=== PATIENT | male | born 1965 | race Caucasian/White ===

== ENCOUNTER 2017-02-19 21:18 | Emergency (ER) | payer OTHER ==
[2017-02-19] MEDS ORDERED: Ketorolac 30 MG/ML SDV IVPUSH ONE (21:28)
[2017-02-19] MEDS ORDERED: Sodium Chloride 0.9% 1,000 ML IV ONE (21:28)
[2017-02-19] MEDS ORDERED: Ondansetron 4 MG/2 ML SDV IVPUSH ONE (21:28)
--- NOTE | 2017-02-19 21:30 | EDM.PDOC ---
ED HPI GENERAL MEDICAL PROBLEM - General Chief Complaint: Abdominal Pain Stated Complaint: ABDOMINAL PAIN/POSSIBLE KIDNEY STONE Time Seen by Provider: 02/19/17 21:29 Source of Information: Reports: Patient - History of Present Illness INITIAL COMMENTS - FREE TEXT/NARRATIVE: HISTORY AND PHYSICAL: History of present illness: []Patient presents with right upper quadrant pain and "6:30 PM increasing to 10 out of 10 7 PM he was followed at the urging of his employer to see the occupational health clinic provider who had performed some x-rays and thought he may have a kidney stone. Which brings the patient to as he does have 6 out of 10 pain now following a TV dinner, pain is located in the right upper quadrant radiating to the back no fever nausea vomiting chills sweats After prolonged evaluation here in the ER symptoms are centered essentially resolved consistent with biliary colic negative workup thus far Was a question of of renal densities in the mid-to low due to nephrocalcinosis secondary to distal renal tubular acidosis medullary sponge kidney or hypercalcemia, however there is no hypercalcemia which would exclude hypercalcemia and the hypercalcemia secondary to tubular acidosis there is no evidence of sponge kidney/cystic kidney disease on imaging Review of systems: As per history of present illness and below otherwise all systems reviewed and negative. Past medical history: As per history of present illness and as reviewed below otherwise noncontributory. Surgical history: As per history of present illness and as reviewed below otherwise noncontributory. Social history: No reported history of drug or alcohol abuse. Family history: As per history of present illness and as reviewed below otherwise noncontributory. Physical exam: HEENT: Atraumatic, normocephalic, pupils reactive, negative for conjunctival pallor or scleral icterus, mucous membranes moist, throat clear, neck supple, nontender, trachea midline. Lungs: Clear to auscultation, breath sounds equal bilaterally, chest nontender. Heart: S1S2, regular, negative for clicks, rubs, or JVD. Abdomen: Soft, nondistended, nontender. Negative for masses or hepatosplenomegaly. Negative for costovertebral tenderness. Pelvis: Stable nontender. Genitourinary: Deferred. Rectal: Deferred. Extremities: Atraumatic, negative for cords or calf pain. Neurovascular unremarkable. Neuro: Awake, alert, oriented. Cranial nerves II through XII unremarkable. Cerebellum unremarkable. Motor and sensory unremarkable throughout. Exam nonfocal. Diagnostics: CBC CMP UA troponin amylase lipase Ultrasound right upper quadrant limited CT abdomen pelvis with and without contrast Therapeutics: [][]Normal saline 1 L Toradol 30 mg IV Zofran 8 mg IV Patient advised to bland diet avoiding greasy food Patient is provided Sweet Water, and Zofran Follow-up with general surgery referral provided for HIDA scan consideration Lab the patient follow-up with urology concerning renal calcifications Impression: []Abdominal pain Likely biliary colic Definitive disposition and diagnosis as appropriate pending reevaluation and review of above. Right Flank Pain Score (Numeric/FACES): 8 - Related Data Allergies Allergy/AdvReac Type Severity Reaction Status Date / Time No Known Allergies Allergy Verified 02/19/17 21:31 Home Meds: Home Meds Omeprazole 20 mg PO DAILY 02/19/17 [History] ED ROS GENERAL - Review of Systems Review Of Systems: ROS reveals no pertinent complaints other than HPI. ED EXAM, GENERAL - Physical Exam Exam: See Below Course - Vital Signs Last Recorded V/S: Last Vital Signs Temp 36.4 C 02/19/17 21:27 Pulse 98 02/19/17 21:27 Resp 18 02/19/17 21:27 BP 132/87 02/19/17 21:27 Pulse Ox 98 02/19/17 21:27 - Orders/Labs/Meds Orders: Active Orders 24 hr Category Date Time Status EKG Documentation Completion [RC] STAT Care 02/19/17 21:52 Active Abdomen Ltd [US] Stat Exams 02/19/17 21:54 Taken Abdomen Pelvis w wo Cont [CT] Stat Exams 02/19/17 23:00 Taken UA W/MICROSCOPIC [URIN] Stat Lab 02/19/17 21:28 Uncollected Labs: Laboratory Tests 02/19/17 02/19/17 02/19/17 Range/Units 21:30 21:30 21:30 WBC 7.91 (4.0-11.0) K/uL RBC 5.18 (4.50-5.90) M/uL Hgb 16.4 (13.0-17.0) g/dL Hct 46.7 (38.0-50.0) % MCV 90.2 (80.0-98.0) fL MCH 31.7 (27.0-32.0) pg MCHC 35.1 (31.0-37.0) g/dL RDW Std Deviation 42.7 (28.0-62.0) fl RDW Coeff of Merle 13 (11.0-15.0) % Plt Count 259 (150-400) K/uL MPV 8.70 (7.40-12.00) fL Neut % (Auto) 39.7 L (48.0-80.0) % Lymph % (Auto) 42.7 H (16.0-40.0) % [place] % (Auto) 11.9 (0.0-15.0) % Eos % (Auto) 5.1 (0.0-7.0) % Baso % (Auto) 0.6 (0.0-1.5) % Neut # (Auto) 3.1 (1.4-5.7) K/uL Lymph # (Auto) 3.4 H (0.6-2.4) K/uL [place] # (Auto) 0.9 H (0.0-0.8) K/uL Eos # (Auto) 0.4 (0.0-0.7) K/uL Baso # (Auto) 0.1 (0.0-0.1) K/uL Nucleated RBC % 0.0 /100WBC Nucleated RBCs # 0 K/uL Sodium 139 (136-146) mmol/L Potassium 3.7 (3.5-5.1) mmol/L Chloride 104 (98-110) mmol/L Carbon Dioxide 26 (21-31) mmol/L BUN 14 (6.0-23.0) mg/dL Creatinine 1.0 (0.6-1.5) mg/dL Est Cr Clr Drug Dosing 77.98 mL/min Estimated GFR (MDRD) > 60.0 ml/min Glucose 92 (60-110) mg/dL Calcium 9.5 (8.8-10.8) mg/dL Total Bilirubin 0.5 (0.1-1.5) mg/dL AST 23 (5-40) IU/L ALT 35 (8-54) IU/L Alkaline Phosphatase 83 (40-150) Troponin I < 0.10 (0.0-0.29) NG/ML Total Protein 7.6 (6.0-8.0) g/dL Albumin 4.0 (3.5-5.0) g/dL Globulin 3.6 H (2.0-3.5) g/dL Albumin/Globulin Ratio 1.1 L (1.3-2.8) Amylase 80 (10-90) U/L Lipase 59 (7-80) U/L Meds: Medications Discontinued Medications Generic Name Dose Route Start Last Admin Trade Name Rod PRN Reason Stop Dose Admin Sodium Chloride 1,000 mls @ 999 mls/hr 02/19/17 21:28 02/19/17 21:38 Normal Saline IV 02/19/17 22:28 999 mls/hr STAT ONE Administration Iopamidol 100 ml 02/19/17 23:40 02/19/17 23:42 Isovue Multipack-370 (76%) IVPUSH 02/19/17 23:41 100 ml ONETIME STA Administration Ketorolac Tromethamine 30 mg 02/19/17 21:28 02/19/17 21:38 Toradol IVPUSH 02/19/17 21:29 30 mg ONETIME ONE Administration Ondansetron HCl 8 mg 02/19/17 21:28 02/19/17 21:38 Zofran IVPUSH 02/19/17 21:29 8 mg ONETIME ONE Administration Departure - Departure Time of Disposition: 00:13 Disposition: Home, Self-Care 01 Condition: Good Clinical Impression: Abdominal pain - Discharge Information Referrals: Dorian Willams MD [Primary Care Provider] - Forms: ED Department Discharge Additional Instructions: [place] diet Medications as prescribed Return if symptoms persist or worsen or new concerning symptoms develop ER referral to general surgery will be provided for early next week for consideration of HIDA scan testing [facility] - General Surgery Professional Building [address] [place] [address], [address] [place] [address] Some calcifications were incidentally found on your kidney we will have you follow-up with urology concerning these findings, call the number below to schedule the appropriate follow-up [facility] - Urology [address] [place] [id number] The following information is given to patients seen in the emergency department who are being discharged to home. This information is to outline your options for follow-up care. We provide all patients seen in our emergency department with a follow-up referral. The need for follow-up, as well as the timing and circumstances, are variable depending upon the specifics of your emergency department visit. If you don't have a primary care physician on staff, we will provide you with a referral. We always advise you to contact your personal physician following an emergency department visit to inform them of the circumstance of the visit and for follow-up with them and/or the need for any referrals to a consulting specialist. The emergency department will also refer you to a specialist when appropriate. This referral assures that you have the opportunity for follow-up care with a specialist. All of these measure are taken in an effort to provide you with optimal care, which includes your follow-up. Under all circumstances we always encourage you to contact your private physician who remains a resource for coordinating your care. When calling for follow-up care, please make the office aware that this follow-up is from your recent emergency room visit. If for any reason you are refused follow-up, please contact the [facility] emergency department at and asked to speak to the emergency department charge nurse. - My Orders Last 24 Hours: My Active Orders 02/19/17 21:28 UA W/MICROSCOPIC [URIN] Stat 02/19/17 21:52 EKG Documentation Completion [RC] STAT 02/19/17 21:54 Abdomen Ltd [US] Stat 02/19/17 23:00 Abdomen Pelvis w wo Cont [CT] Stat - Assessment/Plan Last 24 Hours: My Active Orders 02/19/17 21:28 UA W/MICROSCOPIC [URIN] Stat 02/19/17 21:52 EKG Documentation Completion [RC] STAT 02/19/17 21:54 Abdomen Ltd [US] Stat 02/19/17 23:00 Abdomen Pelvis w wo Cont [CT] Stat
[2017-02-19 22:02] LABS: CHLORIDE,CL 104 mmol/L (98-110); SODIUM,NA 139 mmol/L (136-146)
[2017-02-19] MEDS ORDERED: Iopamidol 755 MG/ML 500 ML Multipack Bottle IVPUSH STA (23:40)
[2017-02-20 00:31] VITALS: BP 113/74
--- NOTE | 2017-02-22 10:03 | US ---
EXAM DATE: 02/19/17 PATIENT'S AGE: 51 Patient: HARIS ESTEBAN Facility: [place], [place] Site . Site : 1965 Study: US Abdomen [id number] 10:53:49 PM Ordering Physician: Wilmer Rubin Final Report: INDICATION: Abdominal pain. TECHNIQUE: Ultrasound abdomen RUQ. Sonographic images of the right upper quadrant were obtained using arce-scale and color Doppler. COMPARISON: None FINDINGS: Liver: Diffuse moderate fatty infiltration of the liver is noted. No intrahepatic biliary ductal dilatation seen. Gallbladder: No gallstones or sludge seen in the lumen. The gallbladder wall is normal in appearance. No pericholecystic fluid is present. No sonographic Rodriguez s sign is present. Common bile duct: The CBD measures 3 mm. Pancreas: The pancreas is obscured by bowel gas. Spleen: Normal in size and appearance. Kidneys: The right kidney measures 12.7 cm. The kidney is normal in size, echotexture and cortex noted. No stones or hydronephrosis is seen. Vascular: Proximal abdominal aorta and IVC are normal in caliber. The visualized portal vein is patent with normal anterograde flow. Miscellaneous: Moderate degradation of image quality noted due to body habitus. IMPRESSIONS: 1. Diffuse moderate fatty infiltration of the liver is noted. Dictated by Chito Forde MD @ 02/19/2017 11:11:36 PM Dictated by: Chito Forde MD @ 02/19/2017 23:11:59 (Electronic Signature) Report Signed by Proxy. UNITED HEALTH SERVICESDoris
--- NOTE | 2017-02-22 10:04 | CT ---
EXAM DATE: 02/19/17 PATIENT'S AGE: 51 Patient: HARIS ESTEBAN Facility: [place], [place] Site . Site : 1965 Study: CT Abdomen/Pelvis W/ and W/O Cont [id number] 11:39:10 PM Ordering Physician: Wilmer Rubin Final Report: INDICATION: Right-Sided abdominal pain. TECHNIQUE: CT abdomen and pelvis was performed with and without intravenous contrast. Sagittal and coronal reformats were obtained. COMPARISON: None CONTRAST: 100 mL Isovue 370 FINDINGS: Lower chest: There is a 4 mm calcified granuloma present in the anterior right middle lobe. Liver: Unremarkable. Spleen: Unremarkable. Pancreas: Unremarkable. Gallbladder: Unremarkable. 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 No ureteral obstruction seen. Adrenal: Unremarkable. GI tract: Unremarkable. On image 126, there are 2 peritoneal calcifications present with the largest measuring 8 mm. These may represent the sequela of previous epiploic appendagitis. Vascular: Unremarkable. Lymph: Unremarkable. Peritoneum: Unremarkable. No pneumoperitoneum is seen. No significant ascites is noted. Pelvis: Unremarkable. Bones: Unremarkable for age. IMPRESSIONS: 1. 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 Correlation with clinical history is recommended to exclude distal renal tubular acidosis, medullary sponge kidney, or hypercalcemia. Dictated by Chito Forde MD @ 02/19/2017 11:49:48 PM Dictated by: Chito Forde MD @ 02/19/2017 23:50:17 (Electronic Signature) Report Signed by Proxy. [facility]
== END 2017-02-20 00:30 | disposition home or self-care (01) ==
LOC: MW.ED 21:18
DX: R10.11 Right upper quadrant pain (principal); Z79.899 Other long term (current) drug therapy
CPT/HCPCS: 74178; 76705; 80053; 82150; 83690; 84484; 85025; 93005; 96361; 96374; 96375; 99284; J1885; J2405; J7040; Q9967; 99282

== ENCOUNTER 2019-07-14 11:03 | Emergency (ER) | payer OTHER ==
[2019-07-14] MEDS ORDERED: predniSONE 10 MG Tab PO ONE (12:12)
[2019-07-14 13:24] LABS: BLOOD UREA NITROGEN,BUN 13 mg/dL (7.0-18.0); CARBON DIOXIDE,CO2 29.3 mmol/L (21.0-32.0); CHLORIDE,CL 105 mmol/L (98-107); GLUCOSE RANDOM 113 mg/dL (74-106); POTASSIUM,K 4.5 mmol/L (3.5-5.1); SODIUM,NA 141 mmol/L (136-148)
--- NOTE | 2019-07-14 14:03 | EDM.PDOC ---
ED HPI GENERAL MEDICAL PROBLEM - General Chief Complaint: Skin Complaint Stated Complaint: BIT ON LEFT CHEEK Time Seen by Provider: 07/14/19 12:06 Source of Information: Reports: Patient History Limitations: Reports: No Limitations - History of Present Illness INITIAL COMMENTS - FREE TEXT/NARRATIVE: This 54 year old male is admitted to the ED with a chief complaint of being bitten by something while at a man camp in [place], [place] 5 days ago. He complains of generalized weakness over the past two days and redness of his left cheek with slight tenderness of same. He denies any nausea or vomiting. He denies any itching. He denies any other complaints at this time. Onset: Gradual (for five days) left shoulder, left side of body, left cheek Pain Score (Numeric/FACES): 6 - Related Data Allergies Allergy/AdvReac Type Severity Reaction Status Date / Time cyclobenzaprine Allergy Other Verified 07/14/19 11:21 [From Flexeril] Home Meds: Home Meds Omeprazole 20 mg PO DAILY 02/19/17 [History] Cephalexin [Keflex] 500 mg PO Q12HR 6 Days #12 capsule 07/14/19 [Rx] predniSONE [Prednisone] 10 mg PO ASDIRECTED #1 tab.ds.pk 07/14/19 [Rx] Past Medical History - Past Health History Medical/Surgical History: Denies Medical/Surgical History Gastrointestinal History: Reports: GERD Psychiatric History: Reports: Addiction Other Psychiatric History: Hx Meth abuse, clean x15 years - Infectious Disease History Infectious Disease History: Reports: Measles, Mumps Social & Family History - Family History Family Medical History: Noncontributory - Tobacco Use Smoking Status *Q: Current Every Day Smoker Years of Tobacco use: 40 Packs/Tins Daily: 0.5 - Caffeine Use Caffeine Use: Reports: Coffee - Recreational Drug Use Recreational Drug Use: Yes Drug Use in Last 12 Months: No ED ROS GENERAL - Review of Systems Review Of Systems: See Below Constitutional: Reports: Weakness, Fatigue HEENT: Reports: No Symptoms Respiratory: Reports: No Symptoms Cardiovascular: Reports: No Symptoms Endocrine: Reports: No Symptoms GI/Abdominal: Reports: No Symptoms : Reports: No Symptoms Musculoskeletal: Reports: No Symptoms Skin: Reports: No Symptoms Neurological: Reports: No Symptoms ED EXAM, SKIN/RASH Exam: See Below Exam Limited By: No Limitations General Appearance: Alert, WD/WN, No Apparent Distress Eye Exam: Bilateral Eye: EOMI, Normal Inspection, PERRL Ears: Normal External Exam, Normal Canal, Hearing Grossly Normal, Normal TMs Nose: Normal Inspection, Normal Mucosa, No Blood Throat/Mouth: Normal Inspection, Normal Lips, Normal Teeth, Normal Gums, Normal Oropharynx, Normal Voice, No Airway Compromise Head: Atraumatic, Normocephalic, Facial Swelling (slight swelling with a small indurated area over the left cheek. Very slight tenderness noted of the indurated area.), Facial Tenderness. No: Sinus Tenderness Neck: Normal Inspection, Supple, Non-Tender, Full Range of Motion Respiratory/Chest: No Respiratory Distress, Lungs Clear, Normal Breath Sounds, No Accessory Muscle Use, Chest Non-Tender Cardiovascular: Normal Peripheral Pulses, Regular Rate, Rhythm, No Edema, No Gallop, No JVD, No Murmur, No Rub Peripheral Pulses: 3+: Radial (L), Radial (R), Dorsalis Pedis (L), Dorsalis Pedis (R) (Male) Exam: Deferred Rectal (Males) Exam: Deferred Back Exam: Normal Inspection, Full Range of Motion, NT Extremities: Normal Inspection, Normal Range of Motion, Non-Tender, No Pedal Edema, Normal Capillary Refill Neurological: Alert, Oriented, CN II-XII Intact, Normal Cognition, Normal Gait, Normal Reflexes, No Motor/Sensory Deficits Psychiatric: Normal Affect, Normal Mood Skin: Other (as noted above) Location, Skin: Face (as noted above involving the left cheek) Characteristics: Macular, Erythematous. No: Bullous, Urticarial, Petechial Associated features: Tenderness, Swelling (very mild. I cannot see an insect bite yunier). No: Warmth Lymphatic: No Adenopathy Course - Vital Signs Text/Narrative:: I discussed with the patient all of his diagnostic testing. He will be discharge with antibiotics and prednisone. No work for three days. He agrees with the discharge plan. Last Recorded V/S: Last Vital Signs Temp 98 F 07/14/19 11:18 Pulse 76 07/14/19 13:55 Resp 15 07/14/19 13:55 BP 169/100 H 07/14/19 13:55 Pulse Ox 97 07/14/19 13:55 - Orders/Labs/Meds Labs: Laboratory Tests 07/14/19 07/14/19 07/14/19 Range/Units 12:30 12:42 12:42 WBC 6.99 (4.0-11.0) K/uL RBC 5.50 (4.50-5.90) M/uL Hgb 17.2 H (13.0-17.0) g/dL Hct 50.7 H (38.0-50.0) % MCV 92.2 (80.0-98.0) fL MCH 31.3 (27.0-32.0) pg MCHC 33.9 (31.0-37.0) g/dL RDW Std Deviation 43.6 (28.0-62.0) fl RDW Coeff of Merle 13 (11.0-15.0) % Plt Count 258 (150-400) K/uL MPV 8.90 (7.40-12.00) fL Neut % (Auto) 42.6 L (48.0-80.0) % Lymph % (Auto) 45.5 H (16.0-40.0) % [place] % (Auto) 6.9 (0.0-15.0) % Eos % (Auto) 4.4 (0.0-7.0) % Baso % (Auto) 0.6 (0.0-1.5) % Neut # (Auto) 3.0 (1.4-5.7) K/uL Lymph # (Auto) 3.2 H (0.6-2.4) K/uL [place] # (Auto) 0.5 (0.0-0.8) K/uL Eos # (Auto) 0.3 (0.0-0.7) K/uL Baso # (Auto) 0.0 (0.0-0.1) K/uL Nucleated RBC % 0.0 /100WBC Nucleated RBCs # 0 K/uL Sodium 141 (136-148) mmol/L Potassium 4.5 (3.5-5.1) mmol/L Chloride 105 (98-107) mmol/L Carbon Dioxide 29.3 (21.0-32.0) mmol/L BUN 13 (7.0-18.0) mg/dL Creatinine 1.0 (0.8-1.3) mg/dL Est Cr Clr Drug Dosing 75.32 mL/min Estimated GFR (MDRD) > 60.0 ml/min Glucose 113 H (74-106) mg/dL Calcium 9.4 (8.5-10.1) mg/dL Magnesium 2.1 (1.8-2.4) mg/dL Total Bilirubin 0.2 (0.2-1.0) mg/dL AST 25 (15-37) IU/L ALT 54 (14-63) IU/L Alkaline Phosphatase 108 (46-116) U/L Total Protein 7.6 (6.4-8.2) g/dL Albumin 3.8 (3.4-5.0) g/dL Globulin 3.8 (2.6-4.0) g/dL Albumin/Globulin Ratio 1.0 (0.9-1.6) Urine Color YELLOW Urine Appearance CLEAR Urine pH 7.0 (5.0-8.0) Ur Specific [place] 1.020 (1.001-1.035) Urine Protein NEGATIVE (NEGATIVE) mg/dL Urine Glucose (UA) NEGATIVE (NEGATIVE) mg/dL Urine Ketones NEGATIVE (NEGATIVE) mg/dL Urine Occult Blood NEGATIVE (NEGATIVE) Urine Nitrite NEGATIVE (NEGATIVE) Urine Bilirubin NEGATIVE (NEGATIVE) Urine Urobilinogen 0.2 (<2.0) EU/dL Ur Leukocyte Esterase NEGATIVE (NEGATIVE) Meds: Medications Discontinued Medications Generic Name Dose Route Start Last Admin Trade Name Garcíaq PRN Reason Stop Dose Admin Prednisone 30 mg 07/14/19 12:12 07/14/19 13:53 Prednisone PO 07/14/19 12:13 30 mg ONETIME ONE Administration Departure - Departure Time of Disposition: 14:09 Disposition: Home, Self-Care 01 Condition: Good Clinical Impression: Swelling of left side of face Insect bite Qualifiers: Encounter type: initial encounter Site of insect bite: unspecified site Qualified Code(s): W57.XXXA - Bitten or stung by nonvenomous insect and other nonvenomous arthropods, initial encounter - Discharge Information *PRESCRIPTION DRUG MONITORING PROGRAM REVIEWED*: Yes *COPY OF PRESCRIPTION DRUG MONITORING REPORT IN PATIENT MASSIEL: Yes Referrals: PCP,None [Primary Care Provider] - Forms: ED Department Discharge, ED Return to Work/School Form Additional Instructions: Take all medications as directed. Follow up with your PCP in the next two to four days. Cold compresses to the left side of the face for the next two days. Rest for the next 24 hours. No work for three days. Return to the ED if your condition gets worse or should you have any questions or concerns. The following information is given to patients seen in the emergency department who are being discharged to home. This information is to outline your options for follow-up care. We provide all patients seen in our emergency department with a follow-up referral. The need for follow-up, as well as the timing and circumstances, are variable depending upon the specifics of your emergency department visit. If you don't have a primary care physician on staff, we will provide you with a referral. We always advise you to contact your personal physician following an emergency department visit to inform them of the circumstance of the visit and for follow-up with them and/or the need for any referrals to a consulting specialist. The emergency department will also refer you to a specialist when appropriate. This referral assures that you have the opportunity for follow-up care with a specialist. All of these measure are taken in an effort to provide you with optimal care, which includes your follow-up. Under all circumstances we always encourage you to contact your private physician who remains a resource for coordinating your care. When calling for follow-up care, please make the office aware that this follow-up is from your recent emergency room visit. If for any reason you are refused follow-up, please contact the [facility] Emergency Department at and asked to speak to the emergency department charge nurse. Sepsis Event Note - Evaluation Sepsis Screening Result: No Definite Risk - Focused Exam Vital Signs: Vital Signs Temp Pulse Resp BP Pulse Ox 07/14/19 13:55 76 15 169/100 H 97 07/14/19 11:18 98 F 89 18 164/93 H 95 Date Exam was Performed: 07/14/19 Time Exam was Performed: 13:57
[2019-07-14] MEDS ORDERED: Cephalexin 500 MG Cap PO ONE (14:08)
[2019-07-14 14:25] VITALS: BP 145/92; PULSE 83
== END 2019-07-14 14:35 | disposition home or self-care (01) ==
LOC: MW.ED 11:03
DX: S00.86XA Insect bite (nonvenomous) of other part of head, initial encounter (principal); F17.210 Nicotine dependence, cigarettes, uncomplicated; Z88.8 Allergy status to other drugs, medicaments and biological substances; W57.XXXA Bitten or stung by nonvenomous insect and other nonvenomous arthropods, initial encounter
CPT/HCPCS: 36415; 80053; 81003; 83735; 85025; 99282; A9270